=== PATIENT | male | born 1985 | race Caucasian/White ===

== ENCOUNTER 2017-01-23 23:47 | Emergency (ER) | payer BC ==
[~2017-01-23] VITALS: Ht 182.9 cm; Wt 104.3 kg
[~2017-01-23 23:47] MED LIST: GABA-529 PO; OXYC-130 PO; OXYC10TA48 PO; OXYC10TA6 PO
[2017-01-23 23:55] VITALS: BP_SYST 152
--- NOTE | 2017-01-23 23:55 | NUR ---
Note eusebio in ED - 01/24/17 at 0003 by MIOSÉS Patient to bed [facility] for [facility]. Side rails up. Report given to Amisha GUO.
--- NOTE | 2017-01-23 23:55 | NUR ---
Patient to ER bed 4 to gown for evaluation. Side rails up. Report given to Amisha GUO.
--- NOTE | 2017-01-23 23:55 | NUR ---
ER Dr. Mcgrath at bedside examining patient.
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
--- NOTE | 2017-01-23 23:58 | NUR ---
Note eusebio in ED - 01/24/17 at 0003 by MOISÉS [facility] Side rails up. Report given to Amisha GUO.
--- NOTE | 2017-01-24 | NUR ---
Pupils equal and reactive to light bilaterally. No facial droop noted. No smile deficit noted. Speech normal for patient. Patient is alert and oriented to person, place, time. Bilateral hand manager winter equal. Bilateral foot push equal.
[2017-01-24 00:13] LABS: BASOPHILS # (AUTO) 0.4 K/uL (0.0-0.2); BASOPHILS % (AUTO) 3.1 % (0.0-2.0); EOSINOPHILS # (AUTO) 0.1 K/uL (0.0-0.4); EOSINOPHILS % (AUTO) 0.7 % (0.0-4.0); HEMATOCRIT 40.6 % (36-54); HEMOGLOBIN 13.9 g/dL (14.0-18.0); LYMPHOCYTES # (AUTO) 3.4 K/uL (1.0-5.5); MEAN CORPUSCULAR HEMOGLOBIN 30 pg (27-31); MEAN CORPUSCULAR HGB CONC 34 % (32-36); MEAN CORPUSCULAR VOLUME 87 fL (79.0-98.0); MONOCYTES # (AUTO) 0.6 K/uL (0.0-1.0); MONOCYTES % (AUTO) 4.7 % (1.7-9.3); NEUTROPHILS # (AUTO) 8.1 K/uL (1.8-7.7); NEUTROPHILS % (AUTO) 64.5 % (40.0-70.0); PLATELET COUNT (AUTO) 364 K/uL (130-430); RED BLOOD CELL COUNT(AUTO) 4.67 MIL/uL (4.2-6.2); RED CELL DISTRIBUTION WIDTH 12.7 % (9.0-15.0); WHITE BLOOD COUNT (AUTO) 12.6 K/uL (4.8-10.8)
[2017-01-24] MEDS ORDERED: NACL 0.9% 1,000 ML IV ONE (00:15)
[2017-01-24 00:26] LABS: ANION GAP 12 (5-15); CALCIUM 8.9 mg/dL (8.4-11.0); CHLORIDE 99 mmol/L (98-107); CREATININE 1.23 mg/dL (0.55-1.30); GLUCOSE 118 mg/dL (70-99); SODIUM SERUM 137 mmol/L (136-145); UREA NITROGEN, BLOOD 9 mg/dL (8-21)
[2017-01-24 00:32] LABS: GFR AFRICAN AMERICAN 89 mL/min (>90); POTASSIUM 2.7 mmol/L (3.5-5.1)
[2017-01-24 00:38] LABS: ACETAMINOPHEN < 1 ug/mL (1-30); PROTHROMBIN TIME 11.1 SECS (9.5-12.5)
[2017-01-24 00:44] LABS: ALANINE AMINOTRANSFERASE 40 U/L (12-78); ALBUMIN 3.9 g/dL (3.4-4.8); ALCOHOL, BLOOD < 3 mg/dL (<10); ASPARTATE AMINOTRANSFERASE 35 U/L (10-37); TOTAL BILIRUBIN 0.6 mg/dL (0.0-1.0)
[2017-01-24] MEDS ORDERED: POTASSIUM CHLORIDE 20 MEQ/PKT PACKET PO ONE (00:45)
[2017-01-24 01:15] LABS: BILIRUBIN,URINE NEGATIVE (NEGATIVE); BLOOD, URINE NEGATIVE (NEGATIVE); CLARITY/URINE CLEAR (CLEAR); COLOR,URINE YELLOW (YELLOW); GLUCOSE,URINE NEGATIVE (NEGATIVE); KETONES,URINE NEGATIVE (NEGATIVE); LEUKOCYTE ESTERASE ,URINE NEGATIVE (NEGATIVE); NITRITE, URINE NEGATIVE (NEGATIVE); PH,URINE 7.5 (5.0-8.0); PROTEIN URINE NEGATIVE (NEGATIVE); UROBILINOGEN,URINE 0.2 (0.2-1.0)
[2017-01-24 01:18] LABS: CKMB RELATIVE INDEX 0.2 (0.0-2.9); CREATINE KINASE MB 0.9 ng/mL (0-3.6)
[2017-01-24 01:44] LABS: BARBITURATE, URINE NEGATIVE (NEG <=200); BENZODIAZEPINE, URINE NEGATIVE (NEG <=150); CANNABINOID, URINE NEGATIVE (NEG <=50); COCAINE, URINE NEGATIVE (NEG <=150); METHAMPHETAMINES SCREEN,URINE NEGATIVE (NEG <=500); OPIATE, URINE NEGATIVE (NEG <=100); PHENCYCLIDINE SCREEN,URINE NEGATIVE (NEG <=25); UR TRICYCLIC ANTIDEPRESSANTS NEGATIVE (NEG <=300); URINE AMPHETAMINE NEGATIVE (NEG <=500); URINE METHADONE NEGATIVE (NEG <=200); URINE OXYCODONE SCREEN NEGATIVE (NEG <=100); URINE PROPOXYPHENE SCREEN NEGATIVE (NEG <=300)
--- NOTE | 2017-01-24 01:47 | NUR ---
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 ETA 30 minutes.
[2017-01-24 02:11] VITALS: BP_SYST 145
--- NOTE | 2017-01-24 02:11 | NUR ---
Patient given written and verbal discharge instructions and verbalizes understanding. ER MD discussed with patient the results and treatment provided. Patient in stable condition. ID arm band removed. IV catheter removed intact and dressing applied, no active bleeding. Rx of K-Dur given. Patient educated on pain management and to follow up with PMD. Pain Scale 0/10. Opportunity for questions provided and answered.
== END 2017-01-24 02:11 | disposition home or self-care (01) ==
LOC: SED 23:47
DX: F41.9 Anxiety disorder, unspecified (principal); E87.6 Hypokalemia; F17.200 Nicotine dependence, unspecified, uncomplicated; Z79.899 Other long term (current) drug therapy
CPT/HCPCS: 36415; 80053; 80307; 81003; 82550; 82553; 85025; 85610; 85730; 96360; 99285; G0480; G0481; G0482; J7030; 93005

== ENCOUNTER 2017-01-29 18:29 | Emergency (ER) | payer BC ==
[~2017-01-29] VITALS: Ht 188 cm; Wt 99.8 kg
[2017-01-29 18:30] VITALS: BP_SYST 154
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
--- NOTE | 2017-01-29 18:42 | NUR ---
Dr Sousa at bedside examining patient
[2017-01-29] MEDS ORDERED: ONDANSETRON 4 MG ODT TAB PO ONE (18:45)
[2017-01-29] MEDS ORDERED: LORazepam 1 MG TABLET PO ONE (18:45)
--- NOTE | 2017-01-29 19:10 | NUR ---
Report given to Shannan GUO
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
[2017-01-29 19:37] VITALS: BP_SYST 130
--- NOTE | 2017-01-29 19:37 | NUR ---
Patient given written and verbal discharge instructions and verbalizes understanding. ER MD Sousa discussed with patient the results and treatment provided. Patient in stable condition. ID arm band removed. Rx of ativan given. Patient educated on pain management and to follow up with PMD. Pain Scale 0/10. Opportunity for questions provided and answered.
== END 2017-01-29 19:37 | disposition home or self-care (01) ==
LOC: SED 18:29
DX: F18.10 Inhalant abuse, uncomplicated (principal); R11.0 Nausea
CPT/HCPCS: 99283; Q0162

== ENCOUNTER 2017-02-11 21:55 | Emergency (ER) | payer BC ==
[~2017-02-11] VITALS: Ht 182.9 cm; Wt 99.8 kg
--- NOTE | 2017-02-11 21:55 | NUR ---
Patient to ER bed 5 to gown for evaluation. Side rails up. Report given to Amisha GUO.
[2017-02-11 21:58] VITALS: BP 145/111; PULSE 76; RESP 22; TEMP 98; O2SAT 98
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
--- NOTE | 2017-02-11 22:07 | NUR ---
ER Dr. Liao at bedside examining patient.
--- NOTE | 2017-02-11 22:18 | NUR ---
Radiology at bedside.
[2017-02-11] MEDS ORDERED: KETOROLAC TROMETHAMINE 60 MG/2 ML VIAL IM ONE (22:45)
[2017-02-11] MEDS ORDERED: OXYCODONE/ACETAMINOPHEN 5-325 TABLET PO ONE (22:45)
[2017-02-11 23:11] VITALS: BP 148/86; PULSE 92; RESP 21; TEMP 98.6; O2SAT 98
--- NOTE | 2017-02-11 23:11 | NUR ---
Patient given written and verbal discharge instructions and verbalizes understanding. ER MD discussed with patient the results and treatment provided. Patient in stable condition. ID arm band removed. Rx of [place] and Ibuprofen given. Patient educated on pain management and to follow up with PMD in 2-3 days. Pain Scale 0/10 Opportunity for questions provided and answered.
[2017-02-11] MEDS ORDERED: BACITRACIN 1 GM OINT TP ONE (23:15)
== END 2017-02-11 23:11 | disposition home or self-care (01) ==
LOC: SED 21:55
DX: S80.02XA Contusion of left knee, initial encounter (principal); F17.200 Nicotine dependence, unspecified, uncomplicated; V19.9XXA Pedal cyclist (driver) (passenger) injured in unspecified traffic accident, initial encounter; Y93.89 Activity, other specified; Y92.89 Other specified places as the place of occurrence of the external cause; Y99.8 Other external cause status
CPT/HCPCS: 73560; 96372; 99284; J1885

== ENCOUNTER 2020-04-21 16:33 | Emergency (ER) | payer MEDICAID ==
[~2020-04-21] VITALS: Ht 182.9 cm; Wt 99.8 kg
[2020-04-21 16:33] VITALS: BP_SYST 149
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
--- NOTE | 2020-04-21 16:35 | NUR ---
ER Dr. Rosas examining patient on EMS [facility].
--- NOTE | 2020-04-21 16:50 | NUR ---
Patient given written and verbal discharge instructions and verbalizes understanding. ER MD discussed with patient the results and treatment provided. Patient in stable condition. ID arm band removed. No given. Patient educated on pain management and to follow up with PMD. Pain Scale 0/10. Opportunity for questions provided and answered. OK to book form given to Minor COKER, pt is medically cleared.
[2020-04-21 16:58] VITALS: BP_SYST 149
== END 2020-04-21 16:50 ==
LOC: SED 16:33
DX: S00.81XA Abrasion of other part of head, initial encounter (principal); F18.10 Inhalant abuse, uncomplicated; F17.210 Nicotine dependence, cigarettes, uncomplicated; Z79.899 Other long term (current) drug therapy; W18.09XA Striking against other object with subsequent fall, initial encounter; Y93.89 Activity, other specified; Y92.89 Other specified places as the place of occurrence of the external cause; Y99.8 Other external cause status
CPT/HCPCS: 99283

== ENCOUNTER 2020-06-01 02:00 | Emergency (ER) | payer MEDICAID ==
[~2020-06-01] VITALS: Ht 182.9 cm; Wt 99.8 kg
[2020-06-01 02:09] VITALS: BP_SYST 134
[2020-06-01] MEDS ORDERED: OLANZapine 5 MG TABLET PO ONE (02:30)
[2020-06-01] MEDS ORDERED: LORazepam 1 MG TABLET PO ONE (02:30)
[2020-06-01] MEDS ORDERED: DIPHENHYDRAMINE HCL 50 MG CAPSULE PO ONE (02:45)
[2020-06-01] MEDS ORDERED: OLANZapine 5 MG TABLET ONE (03:01)
[2020-06-01] MEDS ORDERED: PANTOPRAZOLE SODIUM 40 MG TAB PO ONE (03:15)
[2020-06-01] MEDS ORDERED: MAG-AL HYDROX/SIMETH 30 ML UDC PO ONE (03:15)
[2020-06-01 04:00] LABS: BASOPHILS # (AUTO) 0.1 K/uL (0.0-0.2); BASOPHILS % (AUTO) 0.9 % (0.0-2.0); EOSINOPHILS # (AUTO) 0.2 K/uL (0.0-0.4); EOSINOPHILS % (AUTO) 1.2 % (0.0-4.0); HEMATOCRIT 41.1 % (36-54); LYMPHOCYTES # (AUTO) 4.8 K/uL (1.0-5.5); LYMPHOCYTES % (AUTO) 39.3 % (20.5-51.5); MEAN CORPUSCULAR HEMOGLOBIN 29 pg (27-31); MEAN CORPUSCULAR HGB CONC 34 % (32-36); MEAN CORPUSCULAR VOLUME 86 fL (79.0-98.0); MONOCYTES # (AUTO) 0.7 K/uL (0.0-1.0); NEUTROPHILS # (AUTO) 6.5 K/uL (1.8-7.7); NEUTROPHILS % (AUTO) 52.6 % (40.0-70.0); PLATELET COUNT (AUTO) 341 K/uL (130-430); RED BLOOD CELL COUNT(AUTO) 4.77 MIL/uL (4.2-6.2); RED CELL DISTRIBUTION WIDTH 13.7 % (9.0-15.0); WHITE BLOOD COUNT (AUTO) 12.3 K/uL (4.8-10.8)
[2020-06-01 04:09] LABS: CALCIUM 9.3 mg/dL (8.4-11.0); CREATININE 0.96 mg/dL (0.55-1.30); POTASSIUM 3.8 mmol/L (3.5-5.1)
[2020-06-01 04:14] LABS: ALBUMIN 4.4 g/dL (3.4-4.8); TOTAL BILIRUBIN 0.6 mg/dL (0.0-1.0)
[2020-06-01] MEDS ORDERED: KETOROLAC TROMETHAMINE 60 MG/2 ML VIAL IM ONE (05:15)
[2020-06-01 05:26] VITALS: BP_SYST 129
== END 2020-06-01 05:26 | disposition home or self-care (01) ==
LOC: SED 02:00
DX: B89 Unspecified parasitic disease (principal); F15.90 Other stimulant use, unspecified, uncomplicated; F17.200 Nicotine dependence, unspecified, uncomplicated; Z76.5 Malingerer [conscious simulation]
CPT/HCPCS: 36415; 70450; 76376; 80053; 85025; 96372; 99284; J1885; Q0163

== ENCOUNTER 2020-10-22 06:45 | Emergency (ER) | payer MEDICAID ==
[~2020-10-22] VITALS: Ht 182.9 cm; Wt 90.7 kg
--- NOTE | 2020-10-22 06:48 | NUR ---
Patient to ER bed 3 to gown for evaluation. Side rails up. Report given to HIRO GUO.
[2020-10-22 06:49] VITALS: BP_SYST 120
--- NOTE | 2020-10-22 06:50 | NUR ---
ER Dr. Felipe at bedside for patient evaluation.
--- NOTE | 2020-10-22 06:50 | NUR ---
Patient AAOx4 BIB BLS c/o sudden right leg pain that started when patient woke up this morning. Denies any trauma to leg and states having 10/10 on the pain scale when ambulating on the leg. patient is from [facility]. Denies any medical/surgical history. VSS.
[2020-10-22] MEDS ORDERED: IBUPROFEN 800 MG TABLET PO ONE (07:00)
--- NOTE | 2020-10-22 07:02 | NUR ---
coding tech at bedside to collect blood specimen.
--- NOTE | 2020-10-22 07:07 | NUR ---
patient refused blood draw. made aware.
--- NOTE | 2020-10-22 07:10 | NUR ---
Gave report to SARI Park who will assume care of patient.
--- NOTE | 2020-10-22 07:30 | NUR ---
US AT BEDSIDE
[2020-10-22 07:54] VITALS: BP_SYST 120
[2020-10-22] MEDS ORDERED: IBUP-1969 PO (08:15)
[2020-10-22] MEDS ORDERED: ONDANSETRON HCL 4 MG/2 ML VIAL IVP ONE (08:30)
[2020-10-22] MEDS ORDERED: MORPHINE 2 MG/ML INJ. SYRINGE IVP ONE (08:30)
--- NOTE | 2020-10-22 08:40 | NUR ---
# 20 gauge angiocath placed to LAC. Use of asceptic technique. Opsite placed over site. Blood return noted. Blood for lab drawn from site. Flushed with 10 cc of normal saline. No evidence of infiltration noted. Patient tolerated well.
--- NOTE | 2020-10-22 08:54 | NUR ---
Medication reconciliation completed with information provided by THE PATIENT. Any prior medication reconciliation on file was reviewed and corrected.
[2020-10-22 09:07] LABS: BASOPHILS # (AUTO) 0.1 K/uL (0.0-0.2); BASOPHILS % (AUTO) 0.6 % (0.0-2.0); EOSINOPHILS % (AUTO) 0.1 % (0.0-4.0); HEMATOCRIT 40.6 % (36-54); HEMOGLOBIN 13.6 g/dL (14.0-18.0); LYMPHOCYTES # (AUTO) 2.2 K/uL (1.0-5.5); LYMPHOCYTES % (AUTO) 11.8 % (20.5-51.5); MEAN CORPUSCULAR HEMOGLOBIN 28 pg (27-31); MEAN CORPUSCULAR HGB CONC 33 % (32-36); MEAN CORPUSCULAR VOLUME 83 fL (79.0-98.0); MONOCYTES # (AUTO) 0.8 K/uL (0.0-1.0); NEUTROPHILS # (AUTO) 15.6 K/uL (1.8-7.7); NEUTROPHILS % (AUTO) 83.5 % (40.0-70.0); PLATELET COUNT (AUTO) 284 K/uL (130-430); RED BLOOD CELL COUNT(AUTO) 4.89 MIL/uL (4.2-6.2); WHITE BLOOD COUNT (AUTO) 18.7 K/uL (4.8-10.8)
[2020-10-22 09:11] LABS: CALCIUM 9.4 mg/dL (8.4-11.0); CREATININE 0.94 mg/dL (0.55-1.30); INR 1.1 (0.80-1.20); POTASSIUM 3.8 mmol/L (3.5-5.1); PROTHROMBIN TIME 10.8 SECS (9.5-12.5)
--- NOTE | 2020-10-22 10:11 | NUR ---
consulting technical manager Shelbi at bedside.
--- NOTE | 2020-10-22 10:31 | NUR ---
PT ELOPED FROM ER. STATED THAT HE CAME IN WITH A WALKER AND WANTS TO LEAVE WITH IT. PT GOT AGIGTATED AND CURSING AND STATING " IM GONNA GO OUT FOR CIGARETTE, I WANT MY WALKER AND A TAXI AND ALL MY STUFF". PT WALKED OUTSIDE AND SECURITY ESCORTED OUT WITH HIM. FROM WHAT ER KNOWS, PT DID NOT COME WITH A WALKER.
--- NOTE | 2020-10-22 16:54 | NUR ---
Patient was seen when he was in the ER- He stated he would be going home w/ his mother to [address] [place] [address]. He was requesting a taxi voucher to home when discharged from the ER. This information was given to the RN caring for the patient
== END 2020-10-22 10:31 | disposition home or self-care (01) ==
LOC: SED 06:55
DX: S82.001A Unspecified fracture of right patella, initial encounter for closed fracture (principal); Z20.822 Contact with and (suspected) exposure to COVID-19; X58.XXXA Exposure to other specified factors, initial encounter; Y93.89 Activity, other specified; Y92.89 Other specified places as the place of occurrence of the external cause; Y99.8 Other external cause status
CPT/HCPCS: 29505; 36415; 73564; 80048; 85025; 85610; 85730; 87426; 96374; 96375; 99284; J2270; J2405

== ENCOUNTER 2022-11-27 09:17 | Emergency (ER) | payer MEDICAID ==
[~2022-11-27] VITALS: Ht 182.9 cm; Wt 104.3 kg
[~2022-11-27 09:17] MED LIST changes: +IBUP-1969 PO
[2022-11-27 09:22] VITALS: BP_SYST 120; PULSE 83; RESP 20; TEMP 97.9; O2SAT 100
--- NOTE | 2022-11-27 09:25 | NUR ---
Patient to ER bed 3 to gown for evaluation. Side rails up. Report given to LOLA GUO.
--- NOTE | 2022-11-27 09:25 | NUR ---
Pt BIBA FROM 11/14, C/O 02/13 RIGHT KIDNEY PAIN. 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 VITALS ARE STABLE:BP 126/71, O2 98, RR 16, HR 73, TEMP 98.0. NO MEDICATION HISTORY. PT IS HOMELESS.
--- NOTE | 2022-11-27 09:30 | NUR ---
ER at bedside examining patient.
[2022-11-27] MEDS ORDERED: IBUPROFEN 600 MG TABLET PO ONE (09:45)
--- NOTE | 2022-11-27 10:00 | NUR ---
Spd Manager re: homelessness In to see patient at bed 6 to provide homeless resources. The patient was eating his sack meal and was not in need of an extra outfit. Transportation was offered to him. Prior to leaving the ED, I spoke with SARI Martino and advised him of our conversation.
[2022-11-27 10:11] LABS: BASOPHILS # (AUTO) 0.1 K/uL (0.0-0.2); BASOPHILS % (AUTO) 0.6 % (0.0-2.0); EOSINOPHILS # (AUTO) 3.2 K/uL (0.0-0.4); EOSINOPHILS % (AUTO) 19.2 % (0.0-4.0); HEMATOCRIT 38.3 % (36-54); HEMOGLOBIN 12.6 g/dL (14.0-18.0); LYMPHOCYTES # (AUTO) 2.3 K/uL (1.0-5.5); LYMPHOCYTES % (AUTO) 13.8 % (20.5-51.5); MEAN CORPUSCULAR HEMOGLOBIN 30 pg (27-31); MEAN CORPUSCULAR HGB CONC 33 % (32-36); MEAN CORPUSCULAR VOLUME 91 fL (79.0-98.0); MONOCYTES % (AUTO) 6.2 % (1.7-9.3); NEUTROPHILS % (AUTO) 60.2 % (40.0-70.0); PLATELET COUNT (AUTO) 304 K/uL (130-430); RED BLOOD CELL COUNT(AUTO) 4.21 MIL/uL (4.2-6.2); RED CELL DISTRIBUTION WIDTH 13.9 % (9.0-15.0); WHITE BLOOD COUNT (AUTO) 16.5 K/uL (4.8-10.8)
--- NOTE | 2022-11-27 10:11 | NUR ---
MIKKI FROM [employer] WAS AT BED SIDE, OFFERED PT UBER RIDE TO LONGTERM, PT REFUSED.
[2022-11-27 10:19] LABS: CALCIUM 8.1 mg/dL (8.4-11.0); CREATININE 1.12 mg/dL (0.55-1.30)
[2022-11-27] MEDS ORDERED: TRAM50TA2 PO (10:43)
[2022-11-27] MEDS ORDERED: traMADol HCL HCL 50 MG TABLET (ULTRAM) PO ONE (10:45)
[2022-11-27 10:56] VITALS: BP_SYST 120; PULSE 83; RESP 20; TEMP 97.9; O2SAT 100
--- NOTE | 2022-11-27 11:08 | NUR ---
Patient given written and verbal discharge instructions and verbalizes understanding. ER MD DR OH discussed with patient the results and treatment provided. Patient in stable condition. ID arm band removed. Rx of tramadol given. Patient educated on pain management and to follow up with PMD. Pain Scale 10/10. Opportunity for questions provided and answered. Medication side effect fact sheet provided.
== END 2022-11-27 11:08 | disposition home or self-care (01) ==
LOC: SED 09:17
DX: G89.29 Other chronic pain (principal); M79.10 Myalgia, unspecified site; Z79.899 Other long term (current) drug therapy
CPT/HCPCS: 36415; 80048; 85025; 99283